=== PATIENT | female | born 1970 | race Caucasian/White ===

== ENCOUNTER 2025-05-22 14:18 | Outpatient (REF) | payer BC, SELFPAY ==
--- OUTSIDE RECORDS SUMMARY | 2024-05-26 05:00 | XMS_ITS ---
Author Organization [facility] Address [address] [place] [address] Care Team Providers Care Maintenance Painter Name Role Phone Jesi Wynne Primary Care Provider Ebony Morrow [phone] Problems No Known Problems Encounters Encounter Location Date Provider Diagnosis [address] [address] 05/26/2024 Ebony Lo Plan Of Treatment No Information Progress Notes * Odilia MADRIGAL LDOB:1969 (54 yo F)Acc No.[id number]:05/26/2024 Progress Note Patient: Odilia RUBIO Provider: Mihir Lo DPM :1970 A ge:53 Y S ex:Female Date:05/26/2024 Address:[address] [place], [place] [id number] Pcp:Jesi Wynne Subjective: * Chief Complaints: * * Medical History: Objective: * Vitals: Assessment: Plan: * Treatment: * Images: * The named appointment provid er may or may not be the originator of this progress note, and it is not deemed complete until electronically signed by the appointment provider. Sign off status: Pending * Provider: Mihir Lo DPM Date: 05/26/2024 Generated for Printi ng/Faxing/eTransmitting on: 05/22/2025 03:39 PM EDT
--- NOTE | ~2025-05-22 | XR_ITS ---
EXAMINATION: XR KNEE 1-2 VIEWS LEFT HISTORY: PAIN COMPARISON: There are no prior studies available for comparison. FINDINGS: AP and lateral views of the left knee are submitted. Osseous mineralization is normal. There is no fracture or dislocation. There is mild narrowing of the medial compartment. The soft tissues are unremarkable. There is no joint effusion. XR/XR knee LT 2V IMPRESSION: Mild narrowing of the medial compartment. Electronically signed by: Stephen Hou MD 05/22/2025 02:52 PM EDT
--- NOTE | ~2025-05-22 | US_ITS ---
EXAMINATION: US LOWER EXTREMITY VEINS LIMITED FOLLOW UP LEFT HISTORY: PAIN IN LEFT KNEE COMPARISON: There are no prior studies available for comparison. TECHNIQUE: Duplex and color Doppler sonographic examination of the deep venous system of the left lower extremity was performed. FINDINGS: The common femoral, superficial femoral, and popliteal veins are patent demonstrating normal compressibility, spontaneous flow, and augmentation. There is a normal color and spectral Doppler waveform appearance of the visualized deep venous system above the knee. The posterior tibial and peroneal veins are patent. US/US venous duplex LE LT IMPRESSION: No evidence of acute DVT in the left lower extremity. Electronically signed by: Stephen Hou MD 05/22/2025 03:28 PM EDT
--- OUTSIDE RECORDS SUMMARY | 2025-05-22 15:39 | XMS_ITS | Encounter Summary ---
Author Organization [facility] Address [address] [place] [id number] Phone Care Team Providers Care Manager Utilities Name Role Phone Ry Sage MD Primary Care Provider [phone] Encounter Details Date Type Department Care Team (Late Contact Info) Description 11/02/2023 Procedure Pass MRI, [facility] Imaging - [address], [address] [place] [id number] Social History Tobacco Use Types Packs/Day Years Used Date Smoking Tobacco: Never Alcohol Use Standard Drinks/Week Comments Not Currently 0 (1 standard drink = 0.6 oz pur e alcohol) Education Answer Date Recorded Are you interested in more education? Not on chuck e 03/07/2023 Are you concerned about learning? Not on file 03/07/2023 No 03/07/2023 No 03/07/2023 Digital Access Answer Date Recorded No 03/26/2023 No 03/26/2023 Reliable internet access at home? Not on file 03/26/2023 Device with a working camera? Not on file Comments No Sex and Gender Information Value Date Recorded Sex Assigned at Female 03/30/2021 10:21 AM EDT Legal Sex Female 6:03 PM EST Gender Identity Female 03/30/2021 10:21 AM EDT Sexual Orientation Straight 03/30/2021 10 :21 AM EDT documented as of this encounter Plan of Treatment Upcoming Encounters Date Type Department Care Team (Late st Contact Info) Description 11/07/2024 Procedure Pass MRI, [facility] General Imaging - [address], [address] [place] [address] 11/07/2024 Procedure Pass Breast Imaging, [facility] General Imaging - [place] [address] [facility], [address] [place] [address] 05/30/2025 10:00 AM EDT Appointment MRI, [facility] General Imaging - [address], [address] [place] [address] Madelyn Spear, NURSE EXAMINER [address] [place] [address] [email or web address] 11/13/2025 9:00 AM EST Appointment Breast Imaging, [facility] - [address], [address] [place] [address] Madelyn Spear, NURSE EXAMINER [address] [place] [address] [email or web address] 11/13/2025 10:00 AM EST Office Visit [facility] [address] [facility] [address] [place] [address] Madelyn Spear, NURSE EXAMINER [address] [place] [address] [email or web address] documented as of this encounter Visit Diagnoses Not on filedocumented in this encounter Care Teams Manager Utilities Relationship Specialty Start Date End Date Ry Sage MD [address] [place] [phone] PCP - General Internal Medicine 09/23/15 documented as of this encounter Additional Source Comments The information contained in this document represents components of the legal health record. It is not the complete legal health record.[facility]
--- OUTSIDE RECORDS SUMMARY | 2025-05-22 15:39 | XMS_ITS | Clinical Summary ---
Author Organization [facility] Address [address] [place] [address] Care Team Providers Care Inspector Weights And Measures Name Role Phone Unavailable Primary Care Provider Unavailabl e Allergies No known active allergies Immunizations Name Administration Dates Next Due Covid-19 (Pfizer) Dilution Required 12/18/2020,0 11/28/2020 Social History Tobacco Use Types Packs/Day Years Used Date Smoking Tobacco: Never Assessed Sex and Gender Information Value Date Recorded Sex Assigned at Not on file Gender Identity Not on file Sexual Orientation Not on file Plan of Treatment Health Maintenance Due Date Last Done Comments Hepatitis B Vaccines (1 of 3 - 3-dose series) 1970 Hepatitis C Screening 1970 Depression Screening 1982 Preventative Health Evaluation 1988 DTap / Tdap / Td (1 - Tdap) 1989 Cervical Cancer Screening (Pap Smear) 1991 Colon Cancer Screening (Colonoscopy) 2015 Breast Cancer Screening (Mammogram) 2020 Shingrix-Zoster Vaccine (1 o f 2) 2020 COVID-19 Vaccine (3 - 2023-2 5 season) 2024 12/18/2020, 11/28/2020 Influenza Vaccine (#1) 2025 Pneumococcal Vaccine Aged Out No long er eligible based on patient's age to complete this topic RSV Ped < 20 months Aged Out No longe r eligible based on patient's age to complete this topic
== END 2025-05-22 14:19 | disposition home or self-care (01) ==
LOC: HO.US 14:18
PROVIDERS: PCP Internal Medicine; Visit Provider Nurse Practitioner Adult Health
DX: M25.562 Pain in left knee (principal); M79.89 Other specified soft tissue disorders
CPT/HCPCS: 73560; 93971

== ENCOUNTER → 2025-05-22 14:29 | Outpatient (BNV) | payer BC, SELFPAY | PROVIDERS: PCP Internal Medicine; Visit Provider Radiology Diagnostic Radiology | DX: I83.812 Varicose veins of left lower extremity with pain (principal); M25.562 Pain in left knee | CPT/HCPCS: 73560; 93971 ==